=== PATIENT | male | born 1950 | race Caucasian/White ===

== ENCOUNTER → 2018-12-29 | Outpatient (CLI) | payer MEDICARE, BC ==
[~2018-12-29] MED LIST: ANTIBIOTICS PO; BACTRIM DS TAB1 EACH PO; IOPAMIDOL 370 MG/ML 200 ML INFUS..BTL INJ ONE; KEFLEX PO; PREVACID15 M1 PO; SODIUM CHLORIDE 0.9% 250ML 250 ML ONE; ULTRAM 50MG50 MG PO
[2018-12-29 13:13] LABS: BLOOD UREA NITROGEN 22 mg/dL (7-26); BUN/CREATININE RATIO 20 (6-25); CREATININE, SERUM 1.09 mg/dL (0.72-1.25); EST GLOMERULAR FILTRATION RATE > 60 ML/MIN (60-)
--- NOTE | 2018-12-29 14:35 | Diagnostic Imaging Report ---
EXAMINATION: CT of the abdomen and pelvis with and without contrast. TECHNIQUE: Helical CT images of the abdomen and pelvis were performed from the lung bases to the lesser trochanters before and after the intravenous administration of 150 cc of Isovue 300 and the oral administration of none. Dose modulation, iterative reconstruction, and/or weight based adjustment of the mA/kV was utilized to reduce the radiation dose to as low as reasonably achievable. COMPARISON: None. CLINICAL HISTORY:Hematuria DISCUSSION: ABDOMEN/PELVIS: LOWER THORAX:2 mm right lower lobe nodule. 3 mm right lower lobe. Additional scattered subpleural nodules. HEPATOBILIARY: No focal hepatic lesions. No biliary ductal dilatation.The gallbladder is normal. SPLEEN: No splenomegaly. PANCREAS: No focal masses or ductal dilatation. ADRENALS: No adrenal nodules. KIDNEYS/URETERS: No hydronephrosis or solid mass lesions. Punctate calculus in the superior pole of the right kidney. The ureters are normal in appearance. No filling defect. PELVIC ORGANS/BLADDER: The bladder is unremarkable. Prostate calcifications. PERITONEUM/RETROPERITONEUM: No free air or fluid. LYMPH NODES: No intra-abdominal,retroperitoneal, pelvic or inguinal lymphadenopathy. VESSELS: Vascular calcifications. GI TRACT: No distention or wall thickening. Colonic diverticulosis without inflammatory change. BONES AND SOFT TISSUE: Retrolisthesis of L5 on S1 with degenerative disc disease. IMPRESSION: Punctate right renal calculus superior pole right kidney. Otherwise, unremarkable CT urogram. Colonic diverticulosis without inflammatory change. Signed by: Dr. Alfonso Lizama M.D. on 12/29/2018 2:32 PM
== END ==
LOC: CT 12:18
PROVIDERS: ATTEND Urology
DX: R31.9 Hematuria, unspecified (principal)
CPT/HCPCS: 36415; 74178; 82565; 84520; J7050; Q9967

== ENCOUNTER → 2019-01-13 | Day surgery (SDC) | payer MEDICARE, BC ==
[2019-01-11 13:08] LABS: BASOPHILS # (AUTO) 0.1 (0.0-0.1); BASOPHILS % 0.6 % (0.0-1.0); EOSINOPHILS # (AUTO) 0.2 (0.0-0.4); EOSINOPHILS % 2.3 % (0.0-6.0); HEMATOCRIT 46.3 % (38.2-49.6); HEMOGLOBIN 15.6 g/dL (14.0-18.0); LYMPHOCYTES # (AUTO) 2.9 (1.0-3.2); LYMPHOCYTES % 32.7 % (18.0-39.1); MEAN CORPUSCULAR HEMOGLOBIN 29.7 pg (28-32); MEAN CORPUSCULAR HGB CONC 33.7 g/dL (31-35); MONOCYTES # (AUTO) 0.8 (0.2-0.8); MONOCYTES % 8.3 % (4.4-11.3); NEUTROPHILS % 55.9 % (38.7-80.0); PLATELET COUNT 204 x10e3/uL (140-360); RED BLOOD COUNT 5.26 x10e6/uL (4.3-5.7); RED CELL DISTRIBUTION WIDTH 13.2 % (11.7-14.4)
[2019-01-11 13:29] LABS: ANION GAP 12.9 mmol/L (8-16); CALCIUM 9.4 mg/dL (8.4-10.2); CREATININE, SERUM 1.2 mg/dL (0.72-1.25); POTASSIUM 3.9 mmol/L (3.5-5.1)
--- NOTE | 2019-01-11 13:50 | Diagnostic Imaging Report ---
EXAMINATION: CHEST 2 VIEWS INDICATION: Pre-admit. COMPARISON: Chest radiograph 08/30/2017. FINDINGS: TUBES and LINES: None. LUNGS: Lungs are well inflated. Lungs are clear. There is no evidence of pneumonia or pulmonary edema. PLEURA: No pleural effusion or pneumothorax. HEART AND MEDIASTINUM: The cardiomediastinal silhouette is unremarkable. BONES AND SOFT TISSUES: No acute osseous lesion. Soft tissues are unremarkable. UPPER ABDOMEN: No free air under the diaphragm. IMPRESSION: No acute radiographic abnormality. Signed by: Dr. Eugenio Burton MD on 01/11/2019 1:47 PM
[~2019-01-13] MED LIST changes: +ASPIR 8181 MG PO; +BRILINTA90 MG PO; +CEFTRIAXONE SOD 1 GM/NS 50 ML 50 ML IV ONE; +CRESTOR5 MG PO; +FENTANYL CITRATE/PF 100MCG/2 ML INJ ONE; -IOPAMIDOL 370 MG/ML 200 ML INFUS..BTL INJ ONE; +LIDOCAINE HCL 2% LOCAL INJ 5 ML SDV VIAL INJ ONE; +LIDOCAINE JELLY 2% 10ML URO-JET ONE; +METOPROLOL SUCC25 MG PO; +MIDAZOLAM HCL 2 MG/2 ML VIAL ONE; +PROPOFOL IV EMULSION 10 MG/ML 20 ML VIAL ONE; -SODIUM CHLORIDE 0.9% 250ML 250 ML ONE; +TRIAMTERENE-HCTZ1 EA PO
--- OUTSIDE RECORDS SUMMARY | 2019-01-13 08:29 | XMS REPORT | Encounter Summary ---
Author Organization Unknown Address [address] [place] [address] Phone [phone] Reason for Visit Medical Complaint Instructions 1. Headache headache: care instructions 2. Feeling feverish rapid flu (A+B) call back Discussion Note Pt is in NAD; Verbalizes understanding of all instructions with no questions at this time. Plan of Care Patient Instructions Alternate with Ibuprofen and acetaminophen every 4hrs as needed for pain/fever Proper hydration and rest. Take medications as prescribed. Return to clinic or follow up with your PCP within 2-3 days if symptoms worsen as discussed. In case of emergency call 911 or go to nearest ER. Reminders Provider Appointments None recorded. Lab Rapid Flu (A+B) 04/09/2017 [facility] Referral None recorded. Procedures None recorded. Surgeries None recorded. Imaging None recorded. Medications Name Start Date diclofenac sodium 75 mg tablet,delayed release enoxaparin 40 mg/0.4 mL subcutaneous syringe hydrocodone 10 mg-acetaminophen 325 mg tablet mupirocin 2 % topical ointment sulfamethoxazole 800 mg-trimethoprim 160 mg tablet Medications Administered None recorded. Vitals Height Weight BMI Blood Pressure 5 ft 9 in 275 lbs 40.6 kg/m2 130/90 mm[Hg] Lab Results Date Name Specimen Result Interpretation Description Value Range Status Address Rapid Flu (A+B) Influenza a negative [facility]: [address] [place] [address] Influenza B negative [facility]: [address] [place] [address] Allergies Code Code System Name Reaction Severity Onset NKDA Problems None recorded. Procedures Date Name Performed by Knee Arthroscopy/surgery Information not available Vaccine List None recorded. Social History Smoking Status Never Smoker Past Encounters 04/09/2017 Headache; Feeling Feverish [facility]: [address] [place] [address], Ph. History of Present Illness [id number] Reported By: Patient HPI: Duration: 1 days. Severity: highest temperature 100. Onset/Timing: first recorded 04/08/17. Context: no ill contacts, no tick/insect bites, no recent travel, no new medications; Pt had an I&D of a superficial chest wall abcess on 03/31/17. Finished a course of Bactrim today. Associated Symptoms: no muscle aches, no rash, no lethargy, fever/chills, headache; body aches. Modifying Factors OTC medication Note:
Review of Systems:ROS as noted in the HPI Review of Systems Basic Reported By: Patient Physical Exam Adult Basic, Adult Female Complete, Adult Male Complete Reported By: Patient Constitutional: General Appearance: healthy-appearing, well-nourished, well-developed. Level of Distress: NAD. Ambulation: ambulating normally Psychiatric: Mental Status: active and alert. Orientation: to time, to place, to person Eyes: Lids and Conjunctivae: non-injected, no discharge, no pallor. Pupils: PERRLA. Corneas: grossly intact. EOM: EOMI. Lens: clear. Vision: peripheral vision grossly intact Hwv-Izkb-Zpwhp-Throat: Ears: no lesions on external ear, no outer ear tenderness, EACs clear, TMs clear. Hearing: no hearing loss. Nose: no lesions on external nose, nares patent, no septal deviation, nasal passages clear, no sinus tenderness, no nasal discharge. Lips, Teeth, and Gums: no mouth or lip ulcers, no bleeding gums, normal dentition. Oropharynx: moist mucous membranes, no erythema, no exudates, tonsils not enlarged Neck: Neck: supple, trachea midline, no masses, FROM. Lymph Nodes: no cervical LAD Lungs: Respiratory effort: no dyspnea, no tachypnea, no use of accessory muscles, no intercostal retractions. Auscultation: breath sounds normal, good air movement Cardiovascular: Heart Auscultation: RRR, no murmurs Neurologic: Gait and Station: normal gait, normal station. Cranial Nerves: grossly intact. Sensation: grossly intact. Reflexes: DTRs 2+ bilaterally throughout Skin: Inspection and palpation: no rash, no ulcer, no abnormal nevi, no induration, no nodules, good turgor, no jaundice, lesion
--- OUTSIDE RECORDS SUMMARY | 2019-01-13 08:29 | XMS REPORT ---
Author Author [facility] Address Unknown Phone Unavailable Care Team Providers Care Chief Operating Engineer Name Role Phone Shailesh HORN Unavailable Unavailable MARIANA VELEZ Unavailable Unavailable Beulah STANFORD Unavailable Unavailable Problems This patient has no known problems. Allergies, Adverse Reactions, Alerts This patient has no known allergies or adverse reactions. Medications This patient has no known medications. Results Test Description Test Time Test Comments Text Results Atomic Results Result Comments CHEST 2 VIEWS 2019-01-11 13:46:00 [place] [address] Patient Name: MARY POE MR #: [id number] : 1950 Age/Sex: 68/M Req #: [id number] Adm Physician: Ordered by: DEVON HORN MD Report #: [id number] Location: OR Room/Bed: Procedure: [id number] DX/CHEST 2 VIEWS Exam Date: 01/11/19 Exam Time: 1315 REPORT STATUS: Signed EXAMINATION: CHEST 2 VIEWS INDICATION: Pre-admit. COMPARISON: Chest radiograph 08/30/2017. FINDINGS: TUBES and LINES: None. LUNGS: Lungs are well inflated. Lungs are clear. There is no evidence of pneumonia or pulmonary edema. PLEURA: No pleural effusion or pneumothorax. HEART AND MEDIASTINUM: The cardiomediastinal silhouette is unremarkable. BONES AND SOFT TISSUES: No acute osseous lesion. So ft tissues are unremarkable. UPPER ABDOMEN: No free air under the diaphragm. IMPRESSION: No acute radiographic abnormality. Signed by: Dr. Yves Metcalf MD on 01/11/2019 1:47 PM Dictated By: YVES METCALF MD 46 Transcribed By: ANA on 01/11/197 COPY TO: DEVON HORN MD CT ABDOMEN/PELVIS WOW 2018-12-29 14:04:00 [place] [address] Patient Name: MARY POE MR #: [id number] : 1950 Age/Sex: 68/M Req #: [id number] Adm Physician: Ordered by: DEVON OHRN MD Report #: [id number] Location: CT Room/Bed: Procedure: [id number] CT/CT ABDOMEN/PELVIS WOW Exam Date: 12/29/18 Exam Time: 1320 REPORT STATUS: Signed EXAMINATION: CT of the abdomen and pelvis with and without contrast. TECHNIQUE: Helical CT images of the abdomen and pelvis were performed from the lung bases to the lesser trochanters before and after the intravenous administration of 150 cc of Isovue 300 and the oral administration of none. Dose modulation, iterative reconstruction, and/or weight based adjustment of the mA/kV was utilized to reduce the radiation dose to as low as reasonably achievable. COMPARISON: None. CLINICAL HISTORY:Hematuria DISCUSSION: ABDOMEN/PELVIS: LOWER THORAX:2 mm right lower lobe nodule. 3 mm right lower lobe. Additional scattered subpleural nodules. HEPATOBILIARY: No focal hepatic lesions. No biliary ductal dilatation.The gallbladder is normal. SPLEEN: No splenomegaly. PANCREAS: No focal masses or ductal dilatation. ADRENALS: No adrenal nodules. KIDNEYS/URETERS: No hydronephrosis or solid mass lesions. Punctate calculus in the superior pole of the right kidney. The ureters are normal in appearance. No filling defect. PELVIC ORGANS/BLADDER: The bladder is unremarkable. Prostate calcifications. PERITONEUM/RETROPERITONEUM: No free air or fluid. LYMPH NODES: No intra-abdominal,retroperitoneal, pelvic or inguinal lymphadenopathy. VESSELS: Vascular calcifications. GI TRACT: No distention or wall thickening. Colonic diverticulosis without inflammatory change. BONES AND SOFT TISSUE: Retrolisthesis of L5 on S1 with degenerative disc disease. IMPRESSION: Punctate right renal calculus superior pole right kidney. Otherwise, unremarkable CT urogram. Colonic diverticulosis without inflammatory change. Signed by: Dr. Wilfrido Farmer M.D. on 12/29/2018 2:32 PM Dictated By: WILFRIDO FARMER MD 143 Transcribed By: ANA on 12/29/18 1432 COPY TO: DEVON HORN MD CT ABDOMEN WO [place] [address] Patient Name: MARY POE MR #: [id number] : 1950 Age/Sex: 67/M Req #: [id number] [facility] Physician: Ordered by: MARIANA VELEZ MD Report #: [id number] Location: CT Room/Bed: Procedure: [id number] CT/CT ABDOMEN WO Exam Date: 09/09/17 Exam Time: 0900 REPORT STATUS: Signed PROCEDURE: CT ABDOMEN WITHOUT CONTRAST TECHNIQUE: The abdomen was scanned utilizing a multidetector helical scanner from the diaphragm to the iliac crest after the oral administration of water. No IV contrast was administered because as per physician request. Coronal and sagittal multiplanar reformations were obtained. COMPARISON: None. INDICATIONS: ABDOMINAL PAIN/BRUISING FINDINGS: ABSENCE OF INTRAVENOUS CONTRAST DECREASES SENSITIVITY FOR DETECTION OF FOCAL LESIONS AND VASCULAR PATHOLOGY. LOWER THORAX: Normal. HEPATOBILIARY: No focal hepatic lesions. No biliary ductal dilatation. SPLEEN: No splenomegaly. PANCREAS: No focal masses or ductal dilatation. ADRENALS: No adrenal nodules. KIDNEYS: No hydronephrosis, stones, or solid mass lesions. Bilateral nonspecific perinephric soft tissue inflammatory changes. PERITONEUM / RETROPERITONEUM: No free air or fluid. LYMPH NODES: No lymphadenopathy. VESSELS: Unremarkable. GI TRACT: Visualized portions of the bowel demons trate no distention or wall thickening. BONES AND SOFT TISSUES: Atherosclerotic calcifications. Degenerative changes of the lumbar spine. IMPRESSION: No acute abnormality of the abdomen. Dictated by: Pastor Mariscal M.D. on 09/09/2017 at 12:19 Electronically approved by: Pastor Mariscal M.D. on 09/09/2017 at 12:19 Dictated By: PASTOR MARISCAL MD 1219 Transcribed By: JESSICA on 09/09/17 1219 COPY TO: MARIANA VELEZ MD CHEST 2 VIEWS [place] [address] Patient Name: MARY POE MR #: [id number] : 1950 Age/Sex: 67/M Req #: [id number] Adm Physician: Ordered by: JOSHUA STANFORD MD Report #: [id number] Location: ER Room/Bed: Procedure: [id number] DX/CHEST 2 VIEWS Exam Date: 08/30/17 Exam Time: 1140 REPORT STATUS: Signed EXAMINATION: PA and lateral views of the chest. COMPARISON: None CLINICAL HISTORY: Cough, shortness of breath DISCUSSION: Lines/tubes: None. Lungs: The lungs are well inflated and clear. There is no evidence of pneumonia or pulmonary edema. Pleura: There is no pleural effusion or pneumothorax. Heart and mediastinum: Prominent heart size and central vasculature. Bones and soft tissues: No acute bony abnormalities. IMPRESSION: No acute cardiopulmonary abnormalities. Signed by: Dr. Wilfrido Farmer M.D. on 08/30/2017 12:02 PM Dictated By: WILFRIDO FARMER MD 1202 Transcribed By: ANA on 08/30/17 1202 COPY TO: JOSHUA STANFORD MD
--- OUTSIDE RECORDS SUMMARY | 2019-01-13 08:29 | XMS REPORT | Continuity of Care Document ---
Author Author [facility] Address Unknown Phone Unavailable Problems Problem Status Onset Date Classification Date Reported Comments Source Headache 04/09/2017 Diagnosis 04/09/2017 [facility] Feeling feverish 04/09/2017 Diagnosis 04/09/2017 [facility] Medications Medication Details Route Status Patient Instructions Ordering Provider Order Date Source Diclofenac Sodium 75 MG Delayed Release Oral Tablet diclofenac sodium 75 mg tablet,delayed release Active [facility] 0.4 ML Enoxaparin sodium 100 MG/ML Prefilled Syringe enoxaparin 40 mg/0.4 mL subcutaneous syringe Active [facility] Acetaminophen 325 MG / Hydrocodone Bitartrate 10 MG Oral Tablet hydrocodone 10 mg-acetaminophen 325 mg tablet Active [facility] Mupirocin 0.02 MG/MG Topical Ointment mupirocin 2 % topical ointment Active [facility] Sulfamethoxazole 800 MG / Trimethoprim 160 MG Oral Tablet sulfamethoxazole 800 mg-trimethoprim 160 mg tablet Active [facility] Allergies, Adverse Reactions, Alerts Substance Category Reaction Severity Reaction type Status Date Reported Comments Source Immunizations Immunization Date Given Site Status Last Updated Comments Source Results Order Name Results Value Reference Range Date Interpretation Comments Source Influenza A negative 04/09/2017 [facility] Influenza B negative 04/09/2017 [facility] Vital Signs Vital Sign Value Date Comments Source Diastolic (mm Hg) 90 04/09/2017 [facility] Height 69 04/09/2017 [facility] Systolic (mm Hg) 130 04/09/2017 [facility] Weight 275 04/09/2017 [facility] Encounters Location Location Details Encounter Type Encounter Number Reason For Visit Attending Provider ADM Date DC Date Status Source [place] - [facility] - [id number] Gordon-C: [address] [place] [address], Ph. [id number] Lynda De La Torre 04/09/2017 [facility] Procedures Procedure Code Date Perfomer Comments Source Knee Arthroscopy/surgery [facility]
[2019-01-13 10:35] VITALS: BP 122/87
--- NOTE | 2019-01-21 17:36 | Operative Report ---
DATE OF PROCEDURE: 01/13/2019 SURGEON: Papi Garvey MD PREOPERATIVE DIAGNOSIS: Hematuria. POSTOPERATIVE DIAGNOSIS: Hematuria. PROCEDURE PERFORMED: Cystoscopy. ANESTHESIA: Local. ESTIMATED BLOOD LOSS: Minimal. INDICATIONS: Mr. Gallegos is a 68-year-old gentleman with a recent history of persistent hematuria, now presents for completion of his evaluation. His CT scan revealed no obvious lesions, but some thickening of the bladder mucosa. PROCEDURE IN DETAIL: The patient was brought into the operating room, placed in supine position after initiation of general anesthesia, he was placed in dorsal lithotomy position. After administration of local anesthesia, he was prepped and draped in the usual fashion. The patient did receive some IV sedation. Flexible cystoscopy was performed. The anterior and posterior urethra were noted to be normal. 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 The bladder was entered without difficulty. Upon entrance into the bladder, the ureteral orifices were in normal anatomical position and produced clear efflux. The bladder mucosa was essentially normal except for grade 2 trabeculations. The cystoscope and sheath were then removed and the patient was transferred to recovery room in good condition. Of note, the instrument count was correct at the conclusion of the case. Papi Garvey MD HLW/MODL /[id number]
== END | disposition home or self-care (01) ==
LOC: OR 08:22
PROVIDERS: ATTEND Urology
DX: N42.1 Congestion and hemorrhage of prostate (principal); N32.89 Other specified disorders of bladder; G47.33 Obstructive sleep apnea (adult) (pediatric); I25.10 Atherosclerotic heart disease of native coronary artery without angina pectoris; Z98.61 Coronary angioplasty status; I10 Essential (primary) hypertension; I25.2 Old myocardial infarction; Z01.810 Encounter for preprocedural cardiovascular examination; Z88.8 Allergy status to other drugs, medicaments and biological substances; Z01.812 Encounter for preprocedural laboratory examination; Z01.818 Encounter for other preprocedural examination; Z79.82 Long term (current) use of aspirin; Z68.39 Body mass index [BMI] 39.0-39.9, adult; Z96.659 Presence of unspecified artificial knee joint
CPT/HCPCS: 36415; 52000; 71046; 80048; 85025; 93005; J0696; J2001; J2250; J2704